=== PATIENT | male | born 1985 | race Hispanic/Latino ===

== ENCOUNTER 2017-02-15 05:29 | Emergency (ER) | payer SELFPAY ==
[~2017-02-15] VITALS: Ht 185.4 cm; Wt 150.0 kg
[~2017-02-15 05:29] MED LIST: NAPR500T PO; NPR500T PO
[2017-02-15 05:33] VITALS: BP 139/84; PULSE 85; RESP 16; O2SAT 96
--- NOTE | 2017-02-15 06:03 | ED.REPORT ---
HPI-General Illness Date of Service Feb 15, 2017 ED Provider: Poli Johnson MD This is a 31year old male presenting to the emergency department due to bilateral lower extremity swelling that began 24 days ago. Associated symptoms include nausea, head and neck "pressure," swelling in both feet, numbness in face and R arm. Ibuprofen did not provide pain relief. Denies loss of sensation in face or extremities, fever, chills, shortness of breath, recent weight changes, dysuria, decreased urination, abdominal pain, diarrhea, constipation, or vomiting. Nursing Notes Stated Complaint: BOTH LEGS & HANDS SWOLLEN Chief Complaint: General Complaint Nursing Notes Reviewed: Yes ([employer], [employer] not reconciled) Allergies: Coded Allergies: Penicillins (Verified Allergy, Unknown, 08/13/16) Uncoded Allergies: BARSOAP (Allergy, Severe, 11/16/04) Soaps & Cleansers (Allergy, Unknown, Abdominal Pain, 11/17/04) Scheduled Furosemide (Furosemide) 20 Mg Tab 20 MG PO DAILY Scheduled PRN Naproxen (Naprosyn) 500 Mg Tablet 500 MG PO BID PRN PRN For Pain Naproxen (Naproxen) 500 Mg Tab 500 MG PO BID PRN PRN For Pain General Time Seen by MD: 06:00 Chief Complaint Multip medical complaints Hx Obtained From: Patient Arrived By: Walk-in Sudden in Onset?: Yes Onset Occurred: 21 - 23 hours ago Symptom Duration: Since onset Severity: Current: Mild Pertinent Negative: Pt denies other symptoms Recent Healthcare: No recent doctor visit, No recent hospitalization Similar Sx Previous: No Past Medical History Past Medical History Denies Past Surgical History Denies Smoking History Never Smoker Social History Alcohol Use: Denies alcohol use Ambulatory Status Independent Review of Systems Full Review of Systems Constitutional: Denies: Chills, Fever Respiratory: Denies: Parox nocturnal dyspnea, Shortness of breath Cardiovascular: Denies: Chest pain GI: Reports: Nausea, Denies: Vomiting Male: Denies Dysuria, Denies Flank pain Neurologic: Reports: Headache, Numbness Complete sys rev & neg: except as marked. Physical Exam Vital Signs Vital Signs Date Time Temp Pulse Resp B/P Pulse Ox O2 Delivery O2 Flow Rate FiO2 02/15/17 08:55 37.1 79 17 141/69 98 Room Air 02/15/17 05:33 36.7 85 16 139/84 96 Room Air Initial VS: Reviewed, Vital signs normal Head / Eyes: PERRL ENT: Mucous membranes moist, Conjunctiva normal, No scleral icterus Neck: Supple Respiratory: Breath sounds normal, Clear to auscultation, No respiratory distress Cardiovascular: Regular rate & rhythm, Heart sounds normal, Intact distal pulses Abdomen / GI: Soft, Non-tender, No guarding, No rebound, No distention Skin: Warm, Dry, No cyanosis Psychiatric: Mood/affect normal, Behavior normal, Normal thought content Head / Eyes: Normocephalic, PERRL, EOMI, No nystagmus, No photophobia, No scleral icterus, Conjunctiva NL, Cornea clear Lower Extremity / Pelvis / MS: Full range of motion, Non-tender, Neurologic intact, Vascular intact Trace bilateral edema, +1 or less Neurologic: Oriented X3, Speech NL, No motor deficits, No sensory deficits, CN II - XII intact NIHSS 0 Interpretation & Diagnostics CT HEAD CONCLUSION: Normal except for some right parietal subcutaneous soft tissue swelling. Radiologist: Lj Elizondo MD Lab Results Interpretation Result Diagram: 02/15/17 0635 02/15/17 0635 Test 02/15/17 06:25 02/15/17 06:35 Urine Color Yellow (YELLOW) Urine Appearance Clear (CLEAR,HAZY) Urine pH 5.5 (5.0-8.0) Urine Specific [place] 1.025 (1.003-1.035) Urine Protein Negativemg/dL (NEG,TRACE) Urine Glucose (UA) Negativemg/dL (NEGATIVE) Urine Ketones Negativemg/dL (NEGATIVE) Urine Occult Blood Negative (NEGATIVE) Urine Nitrite Negative (NEGATIVE) Urine Bilirubin Negative (NEGATIVE) Urine Urobilinogen Normalmg/dL (NORMAL) Urine Leukocyte Esterase Negative (NEGATIVE) Urine RBC 0-2/hpf (0-2) Urine WBC 0-5/hpf (0-5) Urine Epithelial Cells Occasional/hpf (NONE-MOD) Urine Crystals None seen (NONE SEEN) Urine Bacteria Few/hpf (NONE-FEW) Urine Hyaline Casts Rare/lpf (NONE) Urine Granular Casts None seen (NONE SEEN) Urine Waxy Casts None seen (NONE SEEN) Urine Red Blood Cell Casts None seen (NONE SEEN) Urine White Blood Cell Casts None seen (NONE SEEN) Urine Mucus None seen (None Seen) Urine Trichomonas None seen (NONE SEEN) Urine Yeast None (NONE SEEN) Urinalysis Comment None Urine Culture Reflexed Not indicated White Blood Count 7.5th/mm3 (3.8-10.1) Red Blood Count 4.75mil/mm3 (4.40-5.80) Hemoglobin 13.3g/dL (13.8-17.2) Hematocrit 37.8% (41.0-50.0) Mean Corpuscular Volume 79.6fL (81-100) Mean Corpuscular Hemoglobin 28.0pg (27.0-35.0) Mean Corpuscular Hemoglobin Concent 35.2% (32.0-37.0) Red Cell Distribution Width 13.1% (12.3-15.4) Platelet Count 256bil/L (150-400) Neutrophils (%) (Auto) 57.3% (40-74) Lymphocytes (%) (Auto) 29.0% (14-46) Monocytes (%) (Auto) 9.6% (4-12) Eosinophils (%) (Auto) 3.1% (0-5) Basophils (%) (Auto) 0.3% (0-3) Sodium Level 138mEq/L (134-144) Potassium Level 3.8mEq/L (3.5-5.2) Chloride Level 101mEq/L (97-108) Carbon Dioxide Level 21mmol/L (18-29) Blood Urea Nitrogen 16mg/dL (6-20) Creatinine 0.95mg/dL (0.76-1.27) Estimat Glomerular Filtration Rate 98mL/min (>59) Glucose Level 112mg/dL (60-99) Calcium Level 9.0mg/dL (8.5-10.1) Total Bilirubin 0.2mg/dL (0.0-1.2) Aspartate Amino Transf (AST/SGOT) 23U/L (0-50) Alanine Aminotransferase (ALT/SGPT) 34U/L (0-44) Alkaline Phosphatase 73U/L (25-150) Pro-B-Type Natriuretic Peptide 62.88pg/mL (0-86) Total Protein 7.2g/dL (6.4-8.4) Albumin 4.3g/dL (3.4-5.0) Hold Reid Top Tube Received (Received) Lab Results Interpretation: CBC normal, no leukocytosis, borderline anemia CMP normal-normal electrolytes, renal function, liver function UA negative Re-Eval/Medical Decision Med Decision/Clinical Course This is a 31-year-old male presents with a variety complaints. His claim some right arm and right face numbness, but no weakness. Diffuse body aches, and is chief complaint of a sense of edema, particularly in the lower extremities, but also in the hands. The patient has normal vitals, no focal deficits are evident on exam, his NIH stroke scale for me is 0-he has sensation of the hands, just reports he has a patch of numbness around the right elbow. His not having measurable findings of a stroke, is nonicteric for TPA. The patient has trace edema of the ankles, but no marked anasarca is clinically evident. He has no ascites. No jaundice. A CT head was obtained was negative. Sent to spend greater than 24 hours duration atypical. I am not finding indication for emergent MRI. Blood work was also normal with no evidence of renal or liver failure. The patient is reassured, but is slightly frustrated. I recommended compression stockings and will give a trial of a few days of furosemide. Routine follow-up and follow-up instructions reviewed. The patient's new, worsening or urgent symptoms he needs to be seen and reevaluated. Source of Hx: Old records Time of Eval: 08:14 Re-Evaluation/Progress Note: Re-checked, plan for d/c, all questions addressed Counseled Regarding: Diagnosis, Lab results, Need for follow-up, When/why to return to ED Discharge & Departure Primary Impression: Edema Edema type: unspecified Qualified Code: R60.9 - Edema, unspecified Additional Impression: Right arm numbness Disposition: Home Discharge Condition All VS Reviewed: Yes Condition: Stable Additional Instructions: 1. A dangerous cause of your symptoms was not identified. 2. Your CT scan was normal - no findings of a stroke or other dangerous condition. 3. Additionally, your blood tests and urine tests were normal - no markers of heart, kidney, or liver problemes were evident. 4. Try the medication furosemide 20mg once a day for three days. 5. Eat fruit/foods with extra potassium (e.g. banana) for the next few days awe well. 6. If symptoms are not improving, call for an appointment with Dr. Brock 7. If new or worsening symptoms - return to the ED 8. It is good to be active, and you can keep the legs elevated in the evening, and you can also purchase below knee "compression stockings" at the local pharmacies to help as well. Referrals: [facility] (PCP) Scribe Attestation Portions of this note were transcribed by Jagdeep Marroquin. I, Dr. Johnson personally performed the history, physical exam and medical decision-making; I reviewed and confirmed the accuracy of the information in the transcribed note. Signed by: Jagdeep Marroquin. 02/15/2017, 15:00. Poli Johnson MD Feb 15, 2017 06:03 JAGDEEP MARROQUIN Feb 15, 2017 06:12
[2017-02-15 06:36] LABS: APPEARANCE,URINE CLEAR (CLEAR,HAZY); COLOR,URINE YELLOW (YELLOW); OCCULT BLOOD,URINE NEGATIVE (NEGATIVE); PH,URINE 5.5 (5.0-8.0); UROBILINOGEN,URINE NORMAL (NORMAL)
[2017-02-15 06:52] LABS: BASOPHILS % (AUTO) 0.3 % (0-3); EOSINOPHILS % (AUTO) 3.1 % (0-5); MONOCYTES % (AUTO) 9.6 % (4-12); Mean Corpuscular Volume 79.6 fL (81-100); NEUTROPHILS % (AUTO) 57.3 % (40-74); Platelet Count 256 bil/L (150-400)
--- NOTE | 2017-02-15 08:17 | DRSVH ---
PROCEDURE: CT BRAIN WITHOUT CONTRAST ([id number]) INDICATIONS: R Face/Arm numbness TECHNIQUE: Noncontrast 4.5 mm thick angled axial sections acquired from the foramen magnum to the vertex, with c oronal reformats. COMPARISON: [facility], CT, BRAIN W/O CONTRAST, 11/16/2004, 18:14. [facility], MR, BRAIN W/O CONTRAST, 11/20/2004, 8:05. [facility], MR, BRAIN W/O CONTRAST, 04/30, 7:44. FINDINGS: Image quality: Excellent. CSF spaces: Basal cisterns are patent. No extra-axial fluid collections. Ventricles are normal in size and shape. Brain: No midline shift. No intracranial masses or hemorrhage. Merchant-white matter interface is norm al. Skull and face: Calvarium and visualized facial bones are intact, without suspicious lesions. There is a cutaneous mass/swelling in the right scalp. No bony erosion. Sinuses: Visualized sinuses and mastoids are clear. IMPRESSION: 1. No acute intracranial abnormalities. 2. A cutaneous mass swelling in the right scalp. No significant discrepancy with the agriculture worker radiology preliminary report. Dictated by: Maximilian Malik M.D. on 02/15/2017 at 8:10 Approved by: Maximilian Malik M.D. on 02/15/2017 at 8:15
[2017-02-15] MEDS ORDERED: FUR20 PO (08:30)
[2017-02-15 08:55] VITALS: BP 141/69; PULSE 79; RESP 17; O2SAT 98
== END 2017-02-15 08:56 | disposition home or self-care (01) ==
LOC: SED 05:29
DX: R60.0 Localized edema (principal); R20.0 Anesthesia of skin; Z88.0 Allergy status to penicillin